=== PATIENT | male | born 1945 | race Caucasian/White ===

== ENCOUNTER 2022-12-02 13:43 | Outpatient (CLI) | payer MEDICARE, BC | END 2022-12-02 13:44 | disposition home or self-care (01) | LOC: CSHSPEC 13:43 | PROVIDERS: ATTEND Urology | DX: N28.89 Other specified disorders of kidney and ureter (principal); E27.8 Other specified disorders of adrenal gland; Z95.0 Presence of cardiac pacemaker; N28.1 Cyst of kidney, acquired | CPT/HCPCS: 71045; 74183; 82565 ==